=== PATIENT | female | born 2005 | race Hispanic/Latino ===

== ENCOUNTER 2025-02-25 14:54 | Emergency (ER) | payer OTHER ==
[~2025-02-25] VITALS: Ht 157.5 cm; Wt 74.7 kg
[2025-02-25 18:21] VITALS: BP 138/81; TEMP 98.9; O2SAT 98
== END 2025-02-25 18:24 | disposition home or self-care (01) ==
LOC: M ED 14:54
DX: H00.022 Hordeolum internum right lower eyelid (principal)